=== PATIENT | female | born 1955 | race Caucasian/White ===

== ENCOUNTER 2024-11-11 14:27 | Outpatient (CLI) | payer MEDICARE, SELFPAY ==
--- NOTE | ~2024-11-11 | MM_ITS ---
EXAMINATION: MM screening willie BI w dimple HISTORY: Screening TECHNIQUE: Craniocaudal and mediolateral oblique 3-D tomosynthesis images were obtained and synthetic 2-D images were generated. CAD analysis was submitted and interpreted. COMPARISON: None available BREAST PARENCHYMAL COMPOSITION: There are scattered areas of fibroglandular density. FINDINGS: There is no evidence of suspicious mass, calcification, or architectural distortion to sugg est malignancy in either breast. IMPRESSION: 1. No mammographic evidence of malignancy. 2. Recommend routine screening mammography in one year. BI-RADS Category 1: Negative Reviewed, dictated and finalized at location B.
--- OUTSIDE RECORDS SUMMARY | 2024-11-11 14:40 | XMS_ITS | Clinical Summary ---
Author Organization [facility] Address [facility] [place] [address] Care Team Providers Care Account Specialist Name Role Phone Sarbjit Cameron MD Primary Care Provide r Allergies Active Allergy Reactions Criticality Noted Date Comments Penicillins Rash Medium 08/20/2018 Medications fluticasone (FLONASE) 50 mcg/actuation nasal spray 8 Active hydroCHLOROthia zide (HYDRODIURIL) 25 mg tablet 8 Active atorvastatin (LIPITOR) 10 mg tablet 8 Active montelukast (SINGULAIR) 10 mg tablet montelukast 10 mg tablet Active PREMARIN vaginal cream 8 Active diphenhydrAMINE (BENADRYL) 25 mg capsule Take 0.5 tablet/capsule (12.5 mg total) by mouth every 6 (six) hours as needed for itching Active metFORMIN (GLUCOPHAGE) 500 mg tablet metformin 500 mg tablet Active multivitamin,tx -minerals capsule Take by mouth Active cholecalciferol (VITAMIN D-3) 2000 unit tablet Active vitamin E (AQUASOL E) 400 unit capsule Take 1 capsule (400 Units total) by mouth Active lisinopriL (PRINIVIL,ZESTR IL) 10 mg tablet lisinopril 10 mg tablet TAKE 1 TABLET BY MOUTH DAILY 2 Active flu vac qs 16-17,4yr up,candy/PF (FLUCELVAX QUAD 4637-7826, PF, IM) Flucelvax Quad [id number] (PF) 60 mcg (15 mcg x 4)/0.5 mL IM syringe TO BE ADMINISTERED BY PHARMACIST FOR IMMUNIZATION Active Active Problems Problem Noted Date Diagnosed Date Vitamin D deficiency 11/10/2021 Allergy to environmental factors 10/19/2021 Cystocele with incomplete uterovaginal prolapse 10/13/2021 Assessment & Plan (05/28/2022 9:25 AM FOOD SERVICES DIRECTOR): -currently managed with #3 Ring, patient is happy with this support and desires to continue with conservative management for now -continue self management of pessary, she leaves out nightly -continue twice weekly VET -return in 6 months for pessary check, if doing well at that time can be seen annually. Assessment & Plan (03/08/2022 9:26 AM CDT): -currently managed with #3 Ring, patient is happy with this support and desires to continue with conservative management for now Assessment & Plan (10/13/2021 2:02 PM CDT): Management options were discussed for anterior predominant incomplete uterovaginal prolapse including expectant management, conservative management (a pessary), and surgical management (obliterative vs reconstructive). She desires to have conservative management. She is not sexually active. - she would like to start with PFPT, we discussed that PFPT will not reverse prolapse but may help in preventing progression and with symptoms - she will consider use of pessary and contact office for appointment if desires Pelvic floor dysfunction in female 10/13/2021 Assessment & Plan (03/08/2022 9:25 AM CDT): -completed PFPT -patient advised to resume home PFPT exercises Assessment & Plan (10/13/2021 1:59 PM CDT): We discussed the role that her pelvic floor muscle dysfunction is likely playing in her pelvic floor symptoms and bowel symptoms. Management options for levator ani/obturator pain/spasm were discussed including pelvic floor physical therapy. A prescription for PFPT was given. Hyperglycemia 10/12/2021 Essential hypertension 10/12/2021 Hyperlipidemia 10/12/2021 Urinary tract infectious disease 10/12/2021 High thyroid stimulating hormone (TSH) level 10/2021 Prediabetes 12/20/2020 Type 2 diabetes mellitus without complication Fatigue 10/29/2018 Thyroid nodule 08/20/2018 Syncope 02/27/2018 Vaginal atrophy 09/26/2016 Assessment & Plan (03/08/2022 9:26 AM CDT): - on twice weekly VET prescribed by outside physician, she was advised to continue Assessment & Plan (10/13/2021 2:03 PM CDT): - on twice weekly VET prescribed by outside physician, she was advised to continue Resolved Problems Problem Noted Date Diagnosed Date Resolved Date Cystocele, midline 10/13/2021 Excess or deficiency of vitamin D 07/06/2016 02/08/2022 Surgical History Surgery Date Site/Laterality Comments CHOLECYSTECTOMY 06/10/1979 - 06/09/1980 TUBAL LIGATION 06/10/1989 - 06/09/1990 Medical History Medical History Date Comments Hypertension Hypercholesteremia High cholesterol Pre-diabetes Cystocele Urinary tract infection Menopause ovarian failure Diabetes mellitus (HCC) 12/16/2020 Family History Medical History Relation Name Comments Diabetes Father Harvey Vyas Heart disease Father Harvey Vyas Hypertension Father Harvey Vyas Kidney failure Father Harvey Vyas Osteoarthritis Father Harvey Vyas Stroke Father Harvey Vyas Hearing loss Mother Jessica Roth Heart disease Mother Jessica Roth Osteoarthritis Mother Jessica Roth Osteoporosis Mother Jessica Waller Thyroid cancer Sister Relation Name Status Comments Father Harvey Vyas Mother Jessica Roth Alive Sister Alive Social History Tobacco Use Types Packs/Day Years Used Date Smoking Tobacco: Never Smokeless Tobacco: Never AUDIT-C Answer Date Recorded Frequency of Alcohol Consumption Not on file 08/23/2020 Average Number of Drinks Not on file 021 Q3: How often do you have si x or more drinks on one occasion? Never 08/23/2020 Comments No Sex and Gender Information Value Date Recorded Sex Assigned at Not on file Legal Sex Female 3:09 AM FOOD SERVICES DIRECTOR Gender Identity Female 10/10/2021 4:45 PM CDT Sexual Orientation Straight 09/25/2022 7: 32 PM CDT Occupation Industry Job Start Date Job End Date retired 08/08/2021 Not on file Not on file Not on file Obstetrics History Para Term AB IAB SAB Ectopic Multiple Livin g Live Births 2 2 2 2 2 Date Outcome GA Total Labor Labor/2nd/3rd Weight Sex Type Anes PTL Micheline A1 A5 Name Clin Term Vag-S pont Living Term Vag-S pont Living Last Filed Vital Signs Vital Sign Reading Time Taken Comments Blood Pressure 155/83 05/11/2024 7:57 AM FOOD SERVICES DIRECTOR Pulse - - Temperature - - Respiratory Rate - - Oxygen Saturation - - Inhaled Oxygen Concentration - - Weight 58.1 kg (128 lb) 05/11/2024 7:57 AM FOOD SERVICES DIRECTOR Height 152.4 cm (5') 05/11/2024 7:57 AM FOOD SERVICES DIRECTOR Body Mass Index 25 05/11/2024 7:57 AM FOOD SERVICES DIRECTOR Plan of Treatment Health Maintenance Due Date Last Done Comments Albumin Creatinine Ratio, Urine 1955 Breast Cancer Screening-Mammogram 1955 Colon Cancer Screening-Colonoscopy 1955 Depression Screening 1955 Fall Risk Assessment 1955 Hemoglobin A1C 1955 Hepatitis C Screening 1955 eGFR 1955 Dilated Eye Exam 1955 Foot Exam 1955 Lipid Panel 1955 Hepatitis B Screening 1973 Well Visit 65+ 2020 Osteoporosis Screening-Bone Density Scan 08/29/2024 08/29/2022 Influenza Vaccine (Season Ended) 2025 02/08/2021, 02/25/2020, 03/16/2019, Additional history exists DTaP/Tdap/Td Vaccine (2 - Td or Tdap) 10/24/2032 10/24/2022 Zoster Vaccine Completed 03/07/2018, 12/12/2017 Pneumococcal vaccine 65+ Completed 10/08/2023, 06/11 Insurance [facility] MEDICARE ADVANTAGE [facility] MED[facility] Address: [address] [address] [place] [address] [facility] MDCR HMO REF [facility] MEDICARE Address: [address] [address] [place] [address] Care Teams Account Specialist Relationship Specialty Start Date End Date Sarbjit Cameron MD [address] [address] PCP - General Internal Medicine 07/29/18
--- OUTSIDE RECORDS SUMMARY | 2024-11-11 14:40 | XMS_ITS | Referral Summary ---
Author Organization [facility] Address [facility] [place] [address] Care Team Providers Care Stoker Installer Name Role Phone Sarbjit Cameron MD Primary [...] flu vac qs 16-17,4yr up,candy/PF (FLUCELVAX QUAD [id number], PF, IM) Flucelvax Quad [id number] (PF) 60 mcg (15 mcg x 4)/0.5 mL IM syringe TO BE ADMINISTERED BY PHARMACIST FOR IMMUNIZATION Active Active Problems Problem Noted Date Diagnosed Date Vitamin D deficiency 11/10/2021 Allergy to environmental factors 10/19/2021 Cystocele with incomplete uterovaginal prolapse 10/13/2021 Assessment & Plan (05/28/2022 9:25 AM LEADITE HEATER): -currently managed with #3 Ring, patient is [...] or deficiency of vitamin D 07/06/2016 02/08/2022 Social History Tobacco Use Types Packs/Day Years [...] on file Legal Sex Female 3:09 AM LEADITE HEATER Gender Identity Female 10/10/2021 4:45 PM CDT Sexual Orientation Straight 09/25/2022 7: 32 PM CDT Occupation Industry Job Start Date Job End Date retired 08/08/2021 Not on file Not on file Not on file Last Filed Vital Signs Vital Sign Reading Time Taken Comments Blood Pressure 155/83 05/11/2024 7:57 AM LEADITE HEATER Pulse - - Temperature - - Respiratory Rate - - Oxygen Saturation - - Inhaled Oxygen Concentration - - Weight 58.1 kg (128 lb) 05/11/2024 7:57 AM LEADITE HEATER Height 152.4 cm (5') 05/11/2024 7:57 AM LEADITE HEATER Body Mass Index 25 05/11/2024 7:57 AM LEADITE HEATER Plan of Treatment Not on file Insurance [phone] (Home) [address] [place] [address] MEDICARE ADVANTAGE MDCR HMO REF Care Teams Stoker Installer Relationship Specialty Start Date End Date Sarbjit Cameron MD [address] [address] PCP - General Internal Medicine 07/29/18
--- OUTSIDE RECORDS SUMMARY | 2024-11-11 14:41 | XMS_ITS | Data Portability ---
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 inside the introitus in May that she is able to push back up where she thinks it belongs. She was helping lift a deep freezer in April up some stairs that she thinks may be the cause. Pt says if she bears down she is able to push the bulge out and says certain kegel exercises pulls it back up. Pt denies any urinary symptoms, changes in bowel movements, or abdominal/pelvic pain. LAURITA ACOSTA Attn: Accounting,[address] [facility], [place], [address], [facility] [place]07[place]21 11:33:08 04/27/2022 text/html Pt is a 66y/o female with a pmhx of postmenopausal atrophic vaginitis and grade 2 cystocele presents for follow up and medication refill. She is doing very well. She saw Uro/train planner for evaluation of cystocele. She completed 1 month of pelvic floor PT and was fitted for pessary. She is tolerating this well and not having any symptoms. She is using premarin cream with relief from atrophic vaginitis. She requests a refill. Pt denies pelvic pain, abnormal discharge, vaginal symptoms, n/v/f. LAURITA ACOSTA Attn: Accounting[address] [place], [address], [facility] [place]/09/[place]22 15:17:29 OBGyn Episode Ob Episode Information Episode Created Date Number of Fetuses Patient Bloodtype Patient rh Status Prepregnancy Weight lbs Domestic Partner Domestic Partner Phone Father Name Water Regulator And Valve Repairer Status 09/27/19 17 1 CLOSED Fetus Data First Name Last Name Admitted to NICU Weight (g) Sex Living Outcome Pediatric Complications Fetus ID Race Codes Race Delivery Type 3175.14 4 F Full Term [id number] Vaginal Leonidas Calculation Initial Leonidas Date Initial Exam Date Initial Exam Provider Initial Ultrasound Date Last Menstrual Period Date Ultra Sound Weeks Gestation 0 Eighteen To Twenty Week Leonidas Update Ultra Sound Date Fundal Height At Umbil Quickening Date Ultra Sound Latest Weeks Gestation Final Leonidas Confirmed By Final Leonidas Confirmed Date Final Leonidas Date Ultra Sound Latest Days Gestation 0 0 Menstrual History Last Menstrual Date Menses Monthly On Bcp Conception Prior Menses Frequency Hcg Plus Date Menarche Onset Age Delivery Information Delivery Date Delivery Type Labor Anesthesia Weeks Gestation Incision Type Labor Labor Length Hrs Delivered By Post Complications Tubal Sterilization Discharge Date Comments 0 None 40 false Discharge Information Feeding Method Contraceptive Method Maternal HG B and HCT Levels Ob Episode Information Episode Created Date Number of Fetuses Patient Bloodtype Patient rh Status Prepregnancy Weight lbs Domestic Partner Domestic Partner Phone Father Name Water Regulator And Valve Repairer Status 09/27/19 17 1 CLOSED Fetus Data First Name Last Name Admitted to NICU Weight (g) Sex Living Outcome Pediatric Complications Fetus ID Race Codes Race Delivery Type 3798.83 3 F Full Term [id number] Vaginal Leonidas Calculation Initial Leonidas Date Initial Exam Date Initial Exam Provider Initial Ultrasound Date Last Menstrual Period Date Ultra Sound Weeks Gestation 0 Eighteen To Twenty Week Leonidas Update Ultra Sound Date Fundal Height At Umbil Quickening Date Ultra Sound Latest Weeks Gestation Final Leonidas Confirmed By Final Leonidas Confirmed Date Final Leonidas Date Ultra Sound Latest Days Gestation 0 0 Menstrual History Last Menstrual Date Menses Monthly On Bcp Conception Prior Menses Frequency Hcg Plus Date Menarche Onset Age Delivery Information Delivery Date Delivery Type Labor Anesthesia Weeks Gestation Incision Type Labor Labor Length Hrs Delivered By Post Complications Tubal Sterilization Discharge Date Comments 2 None 40 false Discharge Information Feeding Method Contraceptive Method Maternal HG B and HCT Levels
--- OUTSIDE RECORDS SUMMARY | 2024-11-11 14:41 | XMS_ITS | Data Portability ---
Author Organization [place] [employer], Main Office Address [address] [place] [address] Care Team Providers Care Training Intern Name Role Phone GERARDO CAMERON Primary Care Provider GERARDO CAMERON Referring Provider [phone] Assessment Encounter Date Assessment Date Assessment LastModified by Organization Details LastModified Time 03/26/2023 03/26/2023 09/08/2022: TSH/FT4/CBC/L ipds/A1C: WNL CMP: Na 133 03/13/2023: Stable Na 131 Not available 03/26/2023 10:16:48 10/08/2023 10/08/2023 09/08/2022: TSH/FT4/CBC/L ipds/A1C: WNL CMP: Na 133 03/13/2023: Stable Na 131 09/27/2023: A1C 5.7 Not available 10/08/2023 10:23:03 02/18/2024 02/18/2024 09/08/2022: TSH/FT4/CBC/L ipds/A1C: WNL CMP: Na 133 03/13/2023: Stable Na 131 09/27/2023: A1C 5.7 02/05/2024: A1C 5.7 Not available 02/16/2024 18:16:02 07/06/2024 07/06/2024 09/08/2022: TSH/FT4/CBC/L ipds/A1C: WNL CMP: Na 133 03/13/2023: Stable Na 131 09/27/2023: A1C 5.7 02/05/2024: A1C 5.7 06/22/2024: A1C 5.4 Not available 07/06/2024 15:19:00 Plan of Treatment Reminders Order Date Submit Date Provider Last Modified By Organization Details Last Modified Time Details Appointments Any 15 2024 08:45A M Gerardo frost MD Not available Not available Not available Lab lipid panel, serum 2024 025 VERNDALE Иван, [address], [place], [address], 07/06/2024 15:19:53 CMP, serum or plasma 2024 025 VERNDALE Sean, [address], [address], [place], [address], 07/06/2024 15:19:54 CBC w/ auto diff 2024 025 VERNDALE Sean, [address], [place], [address], 07/06/2024 15:19:54 TSH + free T4, serum 2024 025 TRACYAPOORVA Estrada, [address], [place], [address], 07/06/2024 15:19:54 HbA1c (hemoglob in A1c), blood 2024 025 TRACYAPOORVA Estrada, [address], [place], [address], 07/06/2024 15:19:55 microalbu min, urine 2024 025 TRACY Estrada, [address], [place], [address], 07/06/2024 15:19:55 lipid panel, serum 2023 024 [email or web address] Иван, [address], [place], [address], 08/18/2024 10:07:56 CMP, serum or plasma 2023 024 [email or web address] [facility], [address], [place], [address], 08/18/2024 10:07:56 CBC w/ auto diff 2023 024 [facility], [address], [place], [address], 08/18/2024 10:07:56 TSH + free T4, serum 2023 024 [email or web address] [facility], [address], [place], [address], 08/18/2024 10:07:57 HbA1c (hemoglob in A1c), blood 2023 024 [email or web address] [facility], [address], [place], [address], 08/18/2024 10:07:57 microalbu min, urine 2023 024 [email or web address] [facility], [address], [place], [address], 08/18/2024 10:07:57 lipid panel, serum 2023 024 [email or web address] [facility], [address], [place], [address], 04/06/2024 12:43:07 CMP, serum or plasma 2023 024 [email or web address] [facility], [address], [place], [address], 04/06/2024 12:43:08 CBC w/ auto diff 2023 024 [email or web address] [facility], [address], [place], [address], 04/06/2024 12:43:08 TSH + free T4, serum 2023 024 [email or web address] [facility], [address], [place], [address], 04/06/2024 12:43:08 HbA1c (hemoglob in A1c), blood 2023 024 [email or web address] [facility], [address], [place], [address], 04/06/2024 12:43:08 microalbu min, urine 2023 024 [email or web address] [facility], [address], [place], [address], 04/06/2024 12:43:08 HbA1c (hemoglob in A1c), blood 2022 023 [email or web address] [facility], [address], [place], [address], 03/23/2024 08:43:22 microalbu min, urine 2022 023 [email or web address] [facility], [address], [address], [place], [address], 03/23/2024 08:43:22 lipid panel, serum 2022 023 TRACY [facility], [address], [place], [address], 10/08/2023 16:38:49 CMP, serum or plasma 2022 023 [email or web address] [facility], [address], [place], [address], 03/23/2024 08:43:22 CBC w/ auto diff 2022 023 [facility], [address], [place], [address], 03/23/2024 08:43:22 TSH + free T4, serum 2022 023 [email or web address] [facility], [address], [place], [address], 03/23/2024 08:43:22 Referral otolaryng ologist referral - Please call patient to schedule an appointme nt. Thank you. 2024 025 ATHENAFAX Shaka Lambert MD, [address], [place], [address], 08/20/2024 10:01:10 gynecolog ist referral - Please call patient to schedule an appointme nt. Thank you. 2024 025 sergio Jarquin MD, [address] [facility] [address], [address], [place], [address], 11/09/2024 15:57:58 podiatris t referral - Please call patient to schedule an appointme nt. Thank you. 2024 025 sergio ROYALM, [address] [facility], [address], [place], [address], 11/09/2024 15:57:58 urogyneco logist referral - Please call patient to schedule an appointme nt. Thank you. 2024 025 sergio Pollock DIRT CONTRACTOR, [address], [address], [place], [address], 11/09/2024 15:57:59 otolaryng ologist referral 2023 024 [email or web address] Shaka Lambert MD, [address], [place], [address], 02/18/2024 16:39:12 gynecolog ist referral 2023 024 [email or web address] Jean Jarquin MD, [address], [address], [place], [address], 02/18/2024 16:39:13 podiatris t referral 2023 024 [email or web address] Cyril Wallace DPM, [address], [address], [place], [address], 02/18/2024 16:39:12 urogyneco logist referral - Please call patient to schedule. 2023 024 [email or web address] Caren Pollock DIRT CONTRACTOR, [address], [address], [place], [address], 09/15/2024 08:22:04 otolaryng ologist referral 2023 024 [email or web address] Shane Gomez MD, [address] [place], [address], 07/06/2024 09:55:30 gynecolog ist referral 2023 024 Jean Jarquin MD, [address], [address], [place], [address], 04/06/2024 14:06:42 podiatris t referral 2023 024 [email or web address] Cyril Wallace DPM, [address], [address], [place], [address], 04/06/2024 14:06:41 otolaryng ologist referral 2022 023 [email or web address] Gomez MD, [address] [place], [address], 06/27/2023 17:08:56 gynecolog ist referral 2022 023 Jean Jarquin MD, [address], [address], [place], [address], 12/25/2023 08:17:57 podiatris t referral 2022 023 Cyril ROYALM, [address] [facility], [address], [place], [address], 03/23/2024 08:43:32 Procedures None recorded. Surgeries None recorded. Imaging MAMMO, screening , digital, bilateral - Please call patient to schedule. [address], [address] [place] [address], [address], 07/06/2024 16:38:15 MAMMO, screening , digital, bilateral - Please call patient to schedule. [address], [facility] [address], [place], [address], 03/19/2024 17:54:39 MAMMO, screening , digital, bilateral 2022 023 [facility]), [address] [place], [address], 04/26/2023 12:22:55 Medication Orders meloxicam 7.5 mg tablet 2023 024 [email or web address] [id number], [address] [place], [place], [id number], 02/18/2024 09:41:49 Patient TargetsNo targets recorded. Patient Instructions Encounter Date Encounter Id Patient Instructions Last Modified By Organization Details Last Modified Time 03/26/2023 [id number] diabetic eye exam* Not avail able 09/23/2023 08:59:29 10/08/2023 [id number] dementia rating scale-2* [email or web address] Not available 10/08/2023 18:28:26 alcohol misuse* hu 2 Not available 10/08/2023 18:28:26 depression screening* hu 2 Not available 10/08/2023 18:28:26 multi-dimensiona l health assessment questionnaire* hu 2 Not available 10/08/2023 18:28:26 advance directiv es: care instructions hu 2 Not available 10/08/2023 18:28:27 advance care planning: care instructions hu 2 Not available 10/08/2023 18:28:26 [place] Advance Directives hu 2 Not available 10/08/2023 18:28:26 diabetic eye exam* Not availa ble 04/06/2024 12:42:45 Personalized Hea lt Plan and Screening Recommendations Advance Directives - Do you have one? No You have indicated that you are capable of preparing your advance care directive Advance Directives - Do we have your advance directive on file in your health record? No, please bring in a copy at your earliest convenience Primary Prevention/Interven tion (prevents or decreases the chance of common diseases from occurring) Smoking Risk: Non Smoker Refer to attached smoking cessation handouts Refer to attached handouts and prescription will be sent to pharmacy Continue to consider stopping smoking and call if we can assist you Recommend screening for possible Emphysema with pulmonary function testing Recommend lung cancer screening with low dose CT scan of the chest Non Smoker Alcohol Misuse Screening: Negative Refer to attached alcohol cessation handout Refer to attached handout and prescription will be sent to pharmacy Decrease alcohol intake to 1 or less servings per day Continue to consider stopping alcohol and call if we can assist you Recommend referral for alcohol counseling/rehabili tation Does not drink alcahol Weight: Appropriate continue your current weight loss efforts try to lose 5% of your body weight try to lose 10% of your body weight try to lose 15% of your body weight consultation with a dietitian monitor weight weekly and call if continue to lose weight continue your current diet Physical activity: Appropriate physical activity decrease sitting time to no more than 5hr/day Nutrition: Good Refer to attached handout Heart-Healthy Diet: After Your Visit Fall Risk (screened today): Low Refer to attached handout Preventing Falls: After your Visit Vaccines Pneumococcal: Ordered Recommended today Recommended today, but you have declined No further needed Your next one in: Ordered/ given today in office Influenza: Your next one in the fall of this year Chronic Disease Risks Stroke: Intermediate Risk I have no recommendations Act simeon diagnosis, Continue current treatment plan My recommendation would be to make an appointment for further testing Eat heart healthy diet Heart Attack: Intermediate Risk I have no recommendations Act simeon diagnosis, Continue current treatment plan My recommendation would be to make an appointment for further testing Eat heart healthy diet / increase exercise Clogging of the Arteries: Intermediate Risk I have no recommendations Act simeon diagnosis, Continue current treatment plan My recommendation would be to make an appointment for further testing Eat heart healthy diet Diabetes: High Risk Refer to attached handout Pre-diabetes: After Your Visit Secondary Prevention/Interven tion (detects treatable diseases before they may cause symptoms, disability, or ) Breast Cancer Screening with mammogram: Recommended today Cervical/Uterine/Ov jerry Cancer Screening: Recommended today Osteoporosis Screening: Your next DEXA in: Ordered Recomme nded today Recommended today, but you have declined No screening necessary Your next DEXA in:1 year Date Screening Last Performed: Colon Cancer Screening: Colonoscopy In: Ordered Recomme nded Recommended today, but you have declined No screening necessary In: Due 08/09/2027 Date Screening Last Performed: 03/31/2022 Eye Disease Screening: Recommended today Dementia Risk: Low I have no recommendations Depression Screening: Negative Recommend additional evaluation and/or treatment as noted above Recommend follow appointment to further evaluate Recommend Behavioral Health referral Active diagnosis, Continue current treatment plan I have no recommendations Not available 10/08/2023 15:37:25 02/18/2024 [id number] diabetic eye exam* [email or web address] Not avail able 08/17/2024 17:41:50 07/06/2024 [id number] diabetic eye exam* [email or web address] Not avail able 07/06/2024 15:38:53 Reason for Referral Bevel Face Stoner And Polisher Referral fo r Thyroid nodule Referring Physician: Gerardo Cameron, Internal Medicine, Encounter Date: 03/26/2023 Accounting Manager Assistant Controller Referral for Type 2 diabetes mellitus without complication Referring Physician: Gerardo Cameron Internal Medicine, Encounter Date: 03/26/2023 Environmental Service Aide Referral for Gy necologic examination Referring Physician: Brad Ortez Medicine, Encounter Date: 03/26/2023 Bevel Face Stoner And Polisher Referral fo r Thyroid nodule Referring Physician: Brad Ortez, Encounter Date: 10/08/2023 Accounting Manager Assistant Controller Referral for Type 2 diabetes mellitus without complication Referring Physician: Brad Ortez, Encounter Date: 10/08/2023 Environmental Service Aide Referral for Gy necologic examination Referring Physician: Brad Ortez Medicine, Encounter Date: 10/08/2023 Bevel Face Stoner And Polisher Referral fo r Thyroid nodule Referring Physician: Brad Ortez, Encounter Date: 02/18/2024 Accounting Manager Assistant Controller Referral for Type 2 diabetes mellitus without complication Referring Physician: Brad Ortez, Encounter Date: 02/18/2024 Environmental Service Aide Referral for Gy necologic examination Referring Physician: Brad Ortez, Encounter Date: 02/18/2024 Urogynecologist Referral for Cystocele Please call patient to schedule. Referring Physician: Brad Ortez, Encounter Date: 02/18/2024 Bevel Face Stoner And Polisher Referral fo r Thyroid nodule Please call patient to schedule an appointment. Thank you. Referring Physician: Brad Ortez, Encounter Date: 07/06/2024 Accounting Manager Assistant Controller Referral for Type 2 diabetes mellitus without complication Please call patient to schedule an appointment. Thank you. Referring Physician: Brad Ortez, Encounter Date: 07/06/2024 Environmental Service Aide Referral for Gy necologic examination Please call patient to schedule an appointment. Thank you. Referring Physician: Brad Ortez, Encounter Date: 07/06/2024 Urogynecologist Referral for Cystocele Please call patient to schedule an appointment. Thank you. Referring Physician: Gerardo Cameron, Internal Medicine, Encounter Date: 07/06/2024 Results Created Date Observation Date Name Description Value Unit Range Abnormal Flag Note LastModifiedBy Organization Detail LastModifiedTime 04/26/20 23 04/26/2023 screcody romero breas t gamal, bilat [facility] [address] [place] [address] Patien t Name: PINKY BASSETT Access ion #: [id number] Sex: F : 1954 7 Dictat ed By: Sloane Gracia Attend ing Physic alma: VIV SOTO Orderi ng Physic alma: VIV SOTO Exam Date: 2022 07:07 AM Exam Name: MG HELMS BREAST GAMAL BILAT Admitt ing Diagno sis(es ): CLINIC AL HISTOR Y: Screen ing COMPAR AMELIA STUDY: 022 TECHNI QUE: Using a full field digita l 2D mammog natasha unit CC and MLO views of both breast s are perfor med. FINDIN GS: BREAST COMPOS ITION: There are scatte red areas of fibrog landul ar densit y in the bilate ral breast s. No suspic ious masses , johnathon ectura l distor tion, asymme tries or suspic ious calcif icatio ns in both breast s. IMPRES TATUM: No eviden ce of malign sissy. Recomm end annual mammog kinga. BIRADS : 2 - Benign Electr onical ly Signed by: Sloane Gracia at 2022 11:19: 43 AM Page 1 [email or web address] [facility] (Imaging) [address] [place], [address], 05/16/2023 14:59:26 04/26/20 23 04/26/2023 MAMMO , sia romero, digit al, bilat eral No observ ation record ed. [email or web address] [facility] [address] [facility], [place], [address], 05/16/2023 14:59:26 10/17/19 24 10/17/2023 imagi ng/di agnos tic resul t No observ ation record ed. [facility] [address] [facility], [place], [address], 10/17/2023 23:35:07 Result Notes None recorded. Problems Name Problem SNOMED Code Status Onset Date Resolution Date Notes Provider Name and Address Organization Details Recorded Time Gastroesop hageal reflux disease without esophagiti s 804506929 Active 2022 Gerardo perkins MD [address] [facility] [address], [place], [address] , [employer] 3 17:13:29 Thyroid nodule 814210300 Active 2022 Gerardo perkins MD [address], [address] [place] [address], [place], [address] , [employer] 3 17:14:10 Increased liver function 92979414 Active 2022 Gerardo perkins MD [address], [place] [address], [place], [address] , [employer] 3 17:14:42 Obstructiv e sleep apnea syndrome 50626433 Active 2022 Gerardo perkins MD [address] [facility] [address], [place], [address] , [employer] 3 17:14:46 Cystocele 590128684 Active 2022 Gerardo perkins MD [address] [facility] [address], [place], [address] , [employer] 3 17:15:02 Pain in finger of left hand 4764192038788 05 Active 2022 Gerardo perkins MD [address], [address], [place], [address] , [place] [facility] 3 17:15:11 Urinary incontinen ce 067958261 Active 2022 Gerardo perkins MD [address], [address], [place], [address] , [place] [facility] 3 17:16:30 Pain of left knee joint 1906123060290 07 Active 2023 Gerardo perkins MD [address], [address], [place], [address] , [facility] 4 14:29:50 Thyroid stimulatin g hormone level above reference range 390669090 Active 2021 Not Available [facility] 3 04:52:58 Type 2 diabetes mellitus without complicati on 994460568 Active 2019 Not Available [facility] 3 04:52:58 Vitamin D deficiency 69978060 Active 2021 Not Available [facility] 3 04:52:58 Disorder of vitamin D 236173731 Active 2016 Not Available [facility] 3 04:52:58 Environmen bea allergy 612472206 Active 2021 Not Available [facility] 3 04:52:58 Hyperlipid emia 54224567 Active Not Available [facility] 3 04:52:58 Essential hypertensi on 81054531 Active Not Available [employer] 3 04:52:58 Urinary tract infectious disease 23866639 Active Not Available [employer] 3 04:52:59 Prediabete s 198382910 Active 2020 Not Available [employer] 3 04:52:59 Diabetes mellitus 27932201 Active Not Available [employer] 3 04:52:59 Hyperglyce deandra 83444674 Active Not Available [employer] 3 04:52:59 Fatigue 02842746 Active 2018 Not Available [facility] 3 04:52:59 Problem Notes None recorded. Procedures Surgical History Date Name Laterality Status Provider Name and Address Organization Details Recorded Time 10/08/19 24 Medicare Wellness CPT Code, subsequent completed Eric Landers LPN [facility] [employer] [facility] 10/08/2023 13:42:13 10/08/19 24 Advanced Care Planning completed Eric Landers LPN [facility] [employer] [facility] 10/08/2023 15:33:23 Cholecystectomy completed JASSON Fernandez [facility] [employer] [facility] 03/26/2023 10:09:09 ligation of fallopian tube completed Maggy Watkins MA [facility] [employer] [facility] 10/08/2023 09:37:03 Imaging Results None recorded. Procedure Notes None recorded. Medical Equipment None Reported. Allergies Allergen ID Allergen Name Allergen Category Reaction Reaction Severity Criticality Documentation Date Start Date Code Code System Note Provider Name and Address Organization Details Recorded Time 8748 Product containin g penicilli n (product) medicatio n rash mild Not available 08/08/2022 97634 8001 SNOMED Not Available [facility] 3 05:06:31 Medications Name Sig Start Date Stop Date Status Note LastModified by Organization Details LastModified Time status covid-19/fl u a-b antigen tst TEST DIRECTED TODAY 02/17 completed Not Available Not Available Not Available metformin 500 mg tablet TAKE 1 TABLET BY MOUTH TWICE DAILY 2024 active Not Available Not Available Not Avai lable prednisone 10 mg tablet 30mg x 2 days, 20mg x 2 days, 10mg x 2 days active Not Available Not Available No t Available famotidine 10 mg tablet Take 1 tablet every day by oral route. 02/24 completed Not Available Not Available Not Available atorvastati n 10 mg tablet TAKE 1 TABLET BY MOUTH DAILY 2024 active Not Available Not Available Not Avai lable azithromyci n 250 mg tablet TAKE 2 TABLETS (500 MG) BY ORAL ROUTE ONCE DAILY FOR 1 DAY THEN 1 TABLET (250 MG) BY ORAL ROUTE ONCE DAILY FOR 4 DAYS 07/23 completed Not Available Not Available Not Available hydrocodone 5 mg-acetamin ophen 325 mg tablet active Not Available Not Available No t Available clindamycin HCl 150 mg capsule TAKE ONE CAPSULE BY MOUTH FOUR TIMES DAILY 07/06 completed Not Available Not Available Not Available sulfamethox azole 800 mg-trimetho prim 160 mg tablet TAKE 1 TABLET BY MOUTH TWICE DAILY 09/11 completed Not Available Not Available Not Available aspirin 81 mg tablet,jesica yed release Take one tablet every other day 03/05 completed Not Available Not Available Not Available meloxicam 7.5 mg tablet TAKE 1 TABLET BY MOUTH TWICE DAILY FOR 15 DAYS NEEDED 02/17 completed Not Available Not Available Not Available famotidine 20 mg tablet Take 1 tablet every day by oral route at bedtime. 2017 active Not Available Not Available Not Avai lable Kenalog 10 mg/mL suspension for injection In office injection administe red by the provider 09/11 completed [facility]: 0003- 0494- 20 Not Available Not Available Not Available lisinopril 10 mg tablet TAKE 1 TABLET BY MOUTH DAILY 2024 active Not Available Not Available Not Avai lable montelukast 10 mg tablet TAKE 1 TABLET BY MOUTH DAILY 2024 active Not Available Not Available Not Avai lable quinapril 20 mg tablet TAKE 1 TABLET BY MOUTH DAILY 05/29 completed Not Available Not Available Not Available hydrochloro thiazide 25 mg tablet TAKE 1 TABLET BY MOUTH DAILY 2024 active Not Available Not Available Not Avai lable ergocalcife rol (vitamin D2) 1,250 mcg (50,000 unit) capsule 10/30 completed Not Available Not Available Not Available levofloxaci n 500 mg tablet active Not Available Not Available Not Available fluticasone propionate 50 mcg/actuati on nasal spray,suspe nsion USE 2 SPRAYS IN BOTH NOSTRILS DAILY 2024 active Not Available Not Available Not Avai lable Benadryl 25 mg capsule Take 1 capsule every day by oral route as needed. active Not Available Not Available No t Available Premarin 0.625 mg/gram vaginal cream INSERT 1 GRAM VAGINALLY TWICE WEEKLY active Not Available Not Available No t Available Multivitami n 50 Plus tablet Take 1 tablet every day by oral route. 2017 active Not Available Not Available Not Avai lable vitamin E TK 1T PO QD 2020 active Not Available Not Available Not Avai lable Vitamin D TK 1T PO QD 2020 active Not Available Not Available Not Avai lable Vitamin D3 qd 03/02 completed Not Available Not Available Not Available lidocaine (PF) 10 mg/mL (1 %) injection solution In office injection administe red by the provider 09/11 completed [facility]: 0409- 4276- 17 Not Available Not Available Not Available Suprep Bowel Prep Kit 17.5 gram-3.13 gram-1.6 gram oral solution 02/24 completed Not Available Not Available Not Available Fluvirin 3508-2713 45 mcg (15 mcg x 3)/0.5 mL intramuscul ar suspension ADM 0.5ML UTD active Not Available Not Available No t Available Fluarix Quad 8640-5712 (PF) 60 mcg (15 mcg x 4)/0.5 mL IM syringe TO BE ADMINISTE RED BY PHARMACIS T FOR IMMUNIZAT ION active Not Available Not Available No t Available Flucelvax Quad 2599-7572 (PF) 60 mcg (15 mcg x 4)/0.5 mL IM syringe TO BE ADMINISTE RED BY PHARMACIS T FOR IMMUNIZAT ION active Not Available Not Available No t Available Flucelvax Quad 3806-4075 (PF) 60 mcg (15 mcg x 4)/0.5 mL IM syringe active Not Available Not Available N ot Available Shingrix (PF) 50 mcg/0.5 mL intramuscul ar suspension, kit ADM 0.5ML IM UTD 06/30 completed Not Available Not Available Not Available Afluria Quad 7999-5601 (PF) 60 mcg (15 mcg x 4)/0.5 mL IM syringe ADM 0.5ML IM UTD 06/30 completed Not Available Not Available Not Available Afluria Qd (36 mos up)(PF)60 mcg (15 mcg x4)/0.5 mL IM syringe ADM 0.5ML IM UTD 03/02 completed Not Available Not Available Not Available Vitals Date Recorded Body height Body mass index (BMI) Body weight Body temperature Heart rate Systolic blood pressure Diastolic blood pressure Provider Name and Address Organization Details Last Updated DateTime 5 152.4 cm 25.2 kg/m2 11279.4 2 g 97.7 [degF] 84 /min 132 mm[Hg] 76 mm[Hg] Rosa Martin Patrice [employer] [facility] [employer] [facility] 5 15:17:26 Date Recorded Body height Body mass index (BMI) Body weight Body temperature Heart rate Oxygen saturation Oxygen saturation in Arterial blood by Pulse oximetry Systolic blood pressure Diastolic blood pressure Provider Name and Address Organization Details Last Updated DateTime 4 152.4 cm 25.1 kg/m2 50259.6 2 g 97.7 [degF] 92 /min 99 % 99 % 128 mm[Hg] 66 mm[Hg] Maggy Watkins MA [employer] [facility] [employer] [facility] 4 09:35:22 Date Recorded Body height Body mass index (BMI) Body weight Body temperature Heart rate Systolic blood pressure Diastolic blood pressure Provider Name and Address Organization Details Last Updated DateTime 4 152.4 cm 26.4 kg/m2 47087.9 7 g 97.7 [degF] 78 /min 130 mm[Hg] 72 mm[Hg] Rosa Martin [facility] [employer] [facility] [employer] 4 14:09:06 Date Recorded Body height Body mass index (BMI) Body weight Body temperature Heart rate Respiratory rate Oxygen saturation Oxygen saturation in Arterial blood by Pulse oximetry Systolic blood pressure Diastolic blood pressure Provider Name and Address Organization Details Last Updated DateTime 4 152.4 cm 25 kg/m2 50415.8 2 g 97.7 [degF] 90 /min 18 /min 98 % 98 % 128 mm[Hg] 80 mm[Hg] Eric Landers LPN [place] [employer] [facility] [employer] [facility] 4 09:40:23 Date Recorded Body height Body mass index (BMI) Body weight Body temperature Heart rate Systolic blood pressure Diastolic blood pressure Provider Name and Address Organization Details Last Updated DateTime 3 152.4 cm 24.1 kg/m2 80660.6 6 g 97.6 [degF] 78 /min 116 mm[Hg] 60 mm[Hg] Rosa Martin Patrice [place] [employer] [facility] [employer] [facility] 3 10:10:47 Social History Question Answer Notes LastModified by Organization Details LastModified Time Tobacco Smoking Status Never Smoker Torri Alireza, NA null, [place] - [facility] 09/11/2022 10:55:10 Do You Have An Advance Directive? No Information Given Today [email or web address] Information not available 10/08/2023 Are You Blind Or Do You Have Difficulty Seeing? No [email or web address] Information not available 10/08/2023 What Is Your Level Of Caffeine Consumption? Moderate [id number] Information not available 08/08/2022 In The 14 Days Before Symptom Onset, Have You Had Close Contact With A Laboratory-conf irmed COVID-19 While That Case Was Ill? No [email or web address] Information not available 09/11/2022 In The 14 Days Before Symptom Onset, Have You Had Close Contact With A Person Who Is Under Investigation For COVID-19 While That Person Was Ill? No [email or web address] Information not available 09/11/2022 Are You Deaf Or Do You Have Serious Difficulty Hearing? No Information not available 09/11/2022 What Type Of Diet Are You Following? REGULAR [email or web address] Information not available 10/08/2023 What Is The Highest Grade Or Level Of School You Have Completed Or The Highest Degree You Have Received? [id number] Information not available 10/08/2023 How Many Days Of Moderate To Strenuous Exercise, Like A Brisk Walk, Did You Do In The Last 7 Days? 4 [email or web address] Information not available 10/08/2023 On Those Days That You Engage In Moderate To Strenuous Exercise, How Many Minutes, On Average, Do You Exercise? 30 Information not available 10/08/2023 Have There Been Any Changes To Your Family Or Social Situation? No Information not available 09/11/2022 What Is The Fluoride Status Of Your Home? Unknown [email or web address] Information not available 09/11/2022 Are There Any Guns Present In Your Home? No [email or web address] Information not available 09/11/2022 Do You Use Insect Repellent Routinely? No [email or web address] Information not available 09/11/2022 Where Do You Live? [facility] [email or web address] Information not available 09/11/2022 Presence Of Domestic Violence No [email or web address] Information not available 10/08/2023 Guns Present In The Home? No Information not available 10/08/2023 Are You Able To Care For Yourself? Yes [email or web address] Information not available 10/08/2023 Are You Blind Or Do Yo Have Difficulty Seeing? No [email or web address] Information not available 10/08/2023 Are You Deaf Or Do You Have Serious Difficulty Hearing? No [email or web address] Information not available 10/08/2023 General Stress Level? Low Information not available 10/08/2023 Live Alone Of With Others? With Others [email or web address] Information not available 10/08/2023 Do You Have A Medical Power Of Plant Worker? No Information not available 09/11/2022 What Was The Date Of Your Most Recent Tobacco Screening? 07/06/2024 Information not available 07/06/2024 Do You Have Any Pets? Yes Cat And Dog [email or web address] Information not available 10/08/2023 What Is Your Relationship Status? Information not available 09/11/2022 Do You Use Your Seat Belt Or Car Seat Routinely? Yes Information not available 09/11/2022 Do You Have Smoke And Carbon Monoxide Detectors In Your Home? Yes [email or web address] Information not available 09/11/2022 Are You Passively Exposed To Smoke? No [email or web address] Information not available 09/11/2022 Are There Any Smokers In Your House? No [email or web address] Information not available 09/11/2022 What Types Of Sporting Activities Do You Participate In? None [email or web address] Information not available 10/08/2023 Do You Use Sunscreen Routinely? Yes [email or web address] Information not available 09/11/2022 Has Tobacco Cessation Counseling Been Provided? No N/a Information not available 09/11/2022 Have You Recently Traveled Abroad? No [email or web address] Information not available 09/11/2022 Do You Have Difficulty Walking Or Climbing Stairs? No Information not available 09/11/2022 Do You Have Any Dietary Restrictions? No [email or web address] Information not available 09/11/2022 Sex: Female Functional Status Question Answer Note LastModified by Organizat ion Details LastModified Time Do you use any illicit or recreational drugs? No Information not available 09/11/2022 Do you or have you ever used any other forms of tobacco or nicotine? No [email or web address] Information not available 09/11/2022 What is your level of alcohol consumption? None [id number] Information not available 08/08/2022 Are you currently employed? No retired Information not available 09/11/2022 Do you have transportation difficulties? No Information not available 09/11/2022 Are you able to walk? [email or web address] Information not available 09/11/2022 Do you have difficulty doing errands alone? No Information not available 09/11/2022 Are you able to care for yourself? Yes Information n ot available 09/11/2022 Do you have difficulty dressing or bathing? No Information not available 09/11/2022 What is your exercise level? Moderate [id number] Information not available 08/08/2022 Mental Status Question Answer Note LastModified by Organizat ion Details LastModified Time Do you feel stressed (tense, restless, nervous, or anxious, or unable to sleep at night)? [id number] Information not available 10/08/2023 Do you have difficulty concentrating, remembering or making decisions? No [email or web address] Information no t available 10/08/2023 Family History Relationship Description Onset Age of this Age Resolved Age Notes LastModified by Organization Details LastModified Time Father Heart disease [id number] Not available 08/08/2022 04:42:51 Father Diabetes mellitus [id number] Not available 08/08/2022 04:42:51 Father Hypertensive disorder [id number] Not available 08/08/2022 04:42:51 Father Family history of stroke [email or web address] Not available 14:18:09 Sister Family history of malignant neoplasm [email or web address] Not available 14:18:09 Mother Kidney disease [id number] Not available 08/08/2022 04:42:51 Medical History Condition Response NERVE DISEASE N BLINDNESS N RHEUMATIC FEVER N KIDNEY STONES N BLADDER PROBLEMS N MRSA N OTHER # 1 N POLIO N LUNG DISEASE/DISORDER N HISTORY OF DRUG ABUSE N RADIATION / CHEMOTHERAPY N COPD N Other # 2 N BLOOD DISEASES N EAR OR HEARING PROBLEMS N MUMPS N SHINGLES N DEPRESSION (INCLUDING POST ) N BOWEL PROBLEMS N STROKE/TIA N ULCERS N BENIGN PROSTATIC HYPERPLASIA N MEASLES N HYPOTENSION N MYOCARDIAL INFARCTION N OBESITY N GERD/NAUSEA Y ANEURYSM N URINARY/BLADDER/KIDNEY PROBLEMS Y CORONARY ARTERY DISEASE (CAD) N ADDICTION CONCERNS N Impotence N ENDOMETRIOSIS N USE OF BLOOD THINNERS N SKIN PROBLEMS N GASTROINTESTINAL DISORDER N PERIPHERAL VASCULAR DISEASE N MUSCLE,JOINT OR BONE PROBLEMS N GASTROINTESTINAL BLEEDING N BLOOD CLOTS N ASTHMA N CATARACTS N ERECTILE DYSFUNCTION N VARICOSITIES N GI PROBLEMS N Low Testosterone N INFERTILITY N AIDS/HIV N CHEMOTHERAPY / RADIATION N LIVER DISEASE N MALE HYPOGONADISM N HYPERTENSION Y Deficiency N TOURETTE'S N ANXIETY DISORDER N BLOOD TRANSFUSION N ANEMIA/BLOOD DISORDER N CHRONIC EAR INFECTIONS N BRONCHITIS N TUBERCULOSIS N GLAUCOMA N FOOT PROBLEM N DIVERTICULITIS N SLEEP APNEA N CHICKENPOX N INFECTIOUS DISEASE N PROSTATE N HEART ARRHYTHMIA N INSOMNIA N HIGH CHOLESTEROL / HYPERLIPIDEMIA Y HYPERTHYROIDISM N EYE PROBLEMS N EDEMA N CHRONIC PAIN SYNDROME N HYPOTHYROIDISM N CONSTIPATION N CAROTID BLOCKAGE N BACK / NECK PROBLEMS N ATHEROSCLEROSIS N BREAST PROBLEMS N DIALYSIS N ECZEMA N OSTEOPOROSIS N ARTHRITIS N APPENDICITIS N DIABETES, TYPE Y BAD TEETH N ENT N HEARTBURN / REFLUX N AUTISM SPECTRUM DISORDER (ASD) N HEPATITIS / LIVER DISEASE N GOUT N SLEEP DISORDER N ALZHEIMER'S DISEASE N Brain Problems N HERPES N DEMENTIA N SEIZURES/EPILEPSY N HEADACHES/MIGRAINES N VASCULAR DISEASE N PACEMAKER N Blood Disorder N DIZZINESS N KIDNEY DISEASE N HEART DISEASE/HEART PROBLEMS N MULTIPLE SCLEROSIS N CARDIAC ARRHYTHMIA N CANCER: SPECIFY N Gall Stones Y ATRIAL FIBRILLATION N PULMONARY EMBOLISM N AUTOIMMUNE DISEASE N Gynecological History Statement/Question Response How many live births 2 Date of Last Colonoscopy Date of Last Mammogram Date of LMP Most Recent Bone Density Date of Last Pap Current Control Method Tubal Ligat ion Obstetrics History GPAL:G 2 P 2 0 0 2 Type Value Multiple Births 0 Full Term 2 Induced 0 Spontaneous 0 Premature 0 Living 2 Ectopics 0 Total 2 Immunizations Vaccine Type Date Status Note Provider Catarino ross and Address Organization Details Recorded Time Influenza, high-dose, quadrivalent, PF 2 completed JASSON Fernandez, [facility] [employer] [facility] 07/06/2024 15:14:33 Tdap 3 completed JASSON Fernandez, [facility] [employer] [facility] 07/06/2024 15:14:56 RSV, bivalent, protein subunit RSVpreF, diluent reconstituted, 0.5 mL, PF 3 completed Rosa Martin RMA null, [facility] 03/26/2023 10:07:04 Influenza, high-dose, quadrivalent, PF 3 completed Rosa Martin RMA null, [facility] 03/26/2023 10:07:42 COVID-19, mRNA, LNP-S, PF, 10 mcg/0.2 mL dose, jorge-sucrose 3 completed Rosa Martin RMA null, [facility] 03/26/2023 10:08:30 Influenza, MDCK, quadrivalent, PF 6 completed Rosa Martin RMA null, [facility] 07/06/2024 15:14:33 Influenza, MDCK, quadrivalent, PF 7 completed Rosa Martin RMA null, [facility] 07/06/2024 15:14:33 zoster recombinant 8 completed Rosa Martin RMA null, [facility] 07/06/2024 15:14:33 zoster recombinant 8 completed Rosa Martin RMA null, [facility] 07/06/2024 15:14:33 Influenza, high-dose, quadrivalent, PF 1 completed Rosa Martin RMA null, [facility] 07/06/2024 15:14:33 Influenza, adjuvanted, quadrivalent, PF 2 completed Rosa Martin RMA null, [facility] 07/06/2024 15:14:33 COVID-19, mRNA, LNP-S, PF, 30 mcg/0.3 mL dose 1 completed Rosa Martin RMA null, [facility] 07/06/2024 15:14:33 COVID-19, mRNA, LNP-S, PF, 30 mcg/0.3 mL dose 1 completed Rosa Martin RMA null, [facility] 07/06/2024 15:14:33 COVID-19, mRNA, LNP-S, PF, 30 mcg/0.3 mL dose 1 completed Rosa Martin RMA null, [facility] 07/06/2024 15:14:33 COVID-19, mRNA, LNP-S, PF, 30 mcg/0.3 mL dose, jorge-sucrose 2 completed Rosa Martin RMA null, [facility] 07/06/2024 15:14:33 COVID-19, mRNA, LNP-S, bivalent, PF, 30 mcg/0.3 mL dose 2 [facility] 15:14:33 Influenza, split virus, quadrivalent, PF 0 completed [facility] 15:14:33 Influenza, split virus, quadrivalent, PF 8 completed [facility] 15:14:33 Influenza, split virus, quadrivalent, PF 5 completed [facility] 15:14:33 Influenza, adjuvanted, quadrivalent, PF 3 completed Rosa Martin RMA null, [facility] 07/06/2024 15:14:56 COVID-19, mRNA, LNP-S, bivalent, PF, 30 mcg/0.3 mL dose 3 completed Rosa Martin RMA null, [facility] 07/06/2024 15:14:56 RSV, bivalent, protein subunit RSVpreF, diluent reconstituted, 0.5 mL, PF 3 completed Rosa Martin RMA null, [facility] 07/06/2024 15:14:56 COVID-19, mRNA, LNP-S, PF, jorge-sucrose, 30 mcg/0.3 mL 4 completed Rosa Martin RMA null, [facility] 07/06/2024 15:14:56 COVID-19, mRNA, LNP-S, PF, jorge-sucrose, 30 mcg/0.3 mL 3 completed Rosa Martin RMA null, [facility] 07/06/2024 15:14:56 Influenza, high-dose, trivalent, PF 4 completed Rosa Martin RMA null, [facility] 07/06/2024 15:14:56 SARS-COV-2 (COVID-19) vaccine, UNSPECIFIED 1 completed Not Available [facility] 08/08/2022 05:05:49 SARS-COV-2 (COVID-19) vaccine, UNSPECIFIED 1 completed Rosa Martin RMA null, [facility] 07/06/2024 15:14:33 SARS-COV-2 (COVID-19) vaccine, UNSPECIFIED 1 completed Rosa Martin RMA null, [facility] 07/06/2024 15:14:33 Influenza, split virus, quadrivalent, preservative 0 completed Rosa Martin RMA null, [facility] 07/06/2024 15:14:33 Influenza, split virus, quadrivalent, preservative 9 completed Not Available [facility] 08/08/2022 05:05:50 Influenza, split virus, trivalent, preservative 6 completed Rosa Martin RMA null, [facility] 07/06/2024 15:14:33 Influenza, split virus, trivalent, preservative 5 completed Rosa Martin RMA null, [facility] 07/06/2024 15:14:33 COVID-19, mRNA, LNP-S, PF, 30 mcg/0.3 mL dose 2 completed Rosa aMrtin RMA null, [employer] [facility] 07/06/2024 15:14:33 Influenza, high-dose, trivalent, PF 1 completed Not Available [facility] 08/08/2022 05:05:50 Influenza, split virus, quadrivalent, preservative 8 completed Not Available [facility] 08/08/2022 05:05:50 Influenza, split virus, trivalent, preservative 4 completed Rosa Martin RMA null, [employer] [facility] 07/06/2024 15:14:33 Pneumococcal conjugate PCV 13 1 completed Rosa Martin RMA null, [employer] [facility] 07/06/2024 15:14:33 Influenza, split virus, trivalent, PF 3 completed Rosa Martin RMA null, [employer] [facility] [employer] [facility] 07/06/2024 15:14:33 pneumococcal polysaccharide PPV23 4 completed Gerardo Cameron MD [address], [place], [address], [facility] [employer] [facility] 10/08/2023 18:27:12 Past Encounters Encounter ID Performer Location Encounter Start Date Encounter Closed Date Diagnosis/Indication Diagnosis SNOMED-CT Code Diagnosis ICD10 Code Diagnosis Note [id number] MD KRISHNA De Leon_[facility] [place] [address] [place] [address] 10/27/2020 00:00:00 10/27/2020 17:22:29 [id number] [facility] ic_[place] _ATHENA_M IGRATION_ DEFAULT_1 _1 , 12/16/2020 00:00:00 12/20/2020 21:10:07 [id number] Gerardo perkins MD Segun_[facility] Internal Med [place] [address] [place] [address] 04/27/2021 00:00:00 04/27/2021 17:55:06 [id number] Gerardo perkins MD S_[facility] Internal Med [facility] [address] [place] [address] 09/19/2021 00:00:00 12/07/2021 09:50:13 [id number] Hira Asencio MD S_[facility] Ortho Dianna Messer [address] [place] [address] 10/25/2021 00:00:00 10/25/2021 17:10:29 [id number] Gerardo perkins MD S_[facility] Internal Med [facility] [address] [facility] [address] [place] [address] 03/20/2022 00:00:00 03/20/2022 13:53:52 [id number] Gerardo perkins MD [facility] Internal Med [facility] [address] [facility] [address] [place] [address] 09/11/2022 10:53:18 09/11/2022 11:30:39 Screening - NAD [id number] Z13.9 C-scope: 08/08/17: Next in [address] Italia sanchez Mammogram: 09/04/18: NegMammogr am 10/28/2019 : NegMammogr am: 03/03/2021 : NegMammogr am: 03/14/2022 : Neg PAP: Get this arranged, needs to see Dr Haskins, but she states that OB called and told her she did not have an apt for a year Is on premarin vaginal cream, understand s the risks DEXA: 08/29/2022 : Osteopenia , do ca and vit d UTD yearly flu shotGet TdapUTD PCV #13 06/30/2020 UTD COVID 19 vaccine RTC in 6 monthsDo labsER if worseShe did verbalize her understand ing of the above Essential hypertension 94145866 I10 On HCTZ 12.5mg dailyNot on quinapril 20mg dailyOn lisinopril 10mg dailyDoes well Hyperlipidemia 48229326 E78.5 On atorvastat in 10mg dailyDoes wellGet labs Gastroesop hageal reflux disease without esophagitis 313449629 K21.9 On famotidine Take as neededCan do TUMS Type 2 rose betes mellitus without complication 739366511 E11.9 On metformin 500mg bidGet labsDoes well Dr Benson 03/17/2021 Dr Mcconnell 12/16/2020 , was told no more apts with him Thyroid nodule 933652751 E04.1 08/20/18: Dr Gomez, [facility], is to repeat the US thyroid in one year OV 10/30/18:A s noted above OV 03/05/19:I s doing doing well at this time OV 07/02/2019 :Get US thyroid done, she states that this is already scheduled does not know the dateIs to see Dr Gomez the ENT Addendum: 09/01/2019 : 0: Dr Gomez ENT next in one year OV 10/29/2019 :F/u with ENT Ov 03/02/2020 :Keep apt with ENT OV 06/30/2020 :Needs to see Dr Gomez the ENT OV 10/27/2020 :Keep apt with Dr Gomez OV 04/27/2021 :Sees ENTGet a repeat TSH/FT4 level OV 09/19/2021 :Does wellENT Dr Gomez 08/23/2020 , next in 2 years OV 03/20/2022 :Get a referral back to ENT OV 09/11/2022 :Keep apt with ENT Environmental allergy 42 4603773 T78.49XD On flonase Increased liver function 76457982 R94.5 Normal LFTs at this time Obstructiv e sleep apnea syndrome 02607235 G47.33 Does well No more apts with pulmonary Cystocele 839477783 N81. 10 Since her insurance is changing wants another referralRe ferred to Dr Jarquin OV 09/19/2021 :Did get PAP on 07/05/2021 , neg as per her history, done at [facility], filled out NORY form to get the report OV 03/20/2022 :Keep apt with her OB, she is now seeing a urologist also in [facility] Seen by Dr Peña, now has seen urology Dr Logan Jones in [facility] on 02/26/2022 she did have PT and has another apt in 05/2022 Pain in fi nger of left hand 5891246284 20654 M79.643 There is mild redness and swelling noted in the base of the L MFRemote history of trauma as per herRefer to Dr Elif Asencio 10/25/2021 , s/p injection Urinary incontinence [address] Peña [id number] Gerardo perkins MD [facility] [address] [facility] [place] [address] 03/26/2023 09:45:36 03/26/2023 10:38:41 Screening - NAD [id number] Z13.9 C-scope: 08/08/17: Next in [address] Italia sanchez Mammogram: 09/04/18: NegMammogr am 10/28/2019 : NegMammogr am: 03/03/2021 : NegMammogr am: 03/14/2022 : Neg PAP: Get this arranged, needs to see Dr Haskins, but she states that OB called and told her she did not have an apt for a yearReferr ed 03/26/2023 Is on premarin vaginal cream, understand s the risks DEXA: 08/29/2022 : Osteopenia , do ca and vit d UTD yearly flu shotGet TdapUTD PCV #13 06/30/2020 , can do #23UTD COVID 19 vaccineGet RSV vaccine and the new COVID 19 vaccineGet Shingrix vaccine RTC in 6 monthsDo labsER if worseShe did verbalize her understand ing of the above Essential hypertension 71856143 I10 On HCTZ 12.5mg dailyNot on quinapril 20mg dailyOn lisinopril 10mg dailyDoes well Hyperlipidemia 20905348 E78.5 On atorvastat in 10mg dailyDoes wellGet labs Gastroesop hageal reflux disease without esophagitis 438807088 K21.9 On famotidine Take as neededCan do TUMS Type 2 rose betes mellitus without complication 571056389 E11.9 On metformin 500mg bidGet labsDoes well Dr Benson 03/17/2021 Dr Mcconnell 12/16/2020 , was told no more apts with him Thyroid nodule 208045992 E04.1 08/20/18: Dr Gomez, [facility], is to repeat the US thyroid in one year OV 10/30/18:A s noted above OV 03/05/19:I s doing doing well at this time OV 07/02/2019 :Get US thyroid done, she states that this is already scheduled does not know the dateIs to see Dr Gomez the ENT Addendum: 09/01/2019 : 0: Dr Gomez ENT next in one year OV 10/29/2019 :F/u with ENT Ov 03/02/2020 :Keep apt with ENT OV 06/30/2020 :Needs to see Dr Gomez the ENT OV 10/27/2020 :Keep apt with Dr Gomez OV 04/27/2021 :Sees ENTGet a repeat TSH/FT4 level OV 09/19/2021 :Does wellENT Dr Gomez 08/23/2020 , next in 2 years OV 03/20/2022 :Get a referral back to ENT OV 09/11/2022 :Keep apt with ENT OV 03/26/2023 : Keep apt with ENT Environmental allergy 42 3919445 T78.49XD On flonaseOn singulair Increased liver function 68411531 R94.5 Normal LFTs at this time Obstructiv e sleep apnea syndrome 37087227 G47.33 Does well No more apts with pulmonary Cystocele 234156139 N81. 10 Since her insurance is changing wants another referralRe ferred to Dr Jarquin OV 09/19/2021 :Did get PAP on 07/05/2021 , neg as per her history, done at [facility], filled out NORY form to get the report OV 03/20/2022 :Keep apt with her OB, she is now seeing a urologist also in [facility] Seen by Dr Peña, now has seen urology Dr Logan Jones in [facility] on 02/26/2022 she did have PT and has another apt in 05/2022 Pain in fi nger of left hand [id number] 03735 M79.645 There is mild redness and swelling noted in the base of the L MFRemote history of trauma as per herRefer to Dr Elif Asencio 10/25/2021 , s/p injection Urinary incontinence [address] 1649[address]32 [address] Peña Gynecologi c examination 72866156 Z01.419 Screening mammography 24 889461 Z12.31 [id number] Gerardo perkins MD [facility] [address] [facility] [place] [address] 10/08/2023 09:25:13 10/08/2023 10:44:12 Screening - NAD [id number] Z13.9 C-scope: 08/08/17: Next in [address] Italia sanchez Mammogram: 09/04/18: NegMammogr am 10/28/2019 : NegMammogr am: 03/03/2021 : NegMammogr am: 03/14/2022 : NegMammogr am: 04/26/2023 : Neg PAP: Get this arranged, needs to see Dr Haskins, but she states that OB called and told her she did not have an apt for a yearReferr ed 03/26/2023 Is on premarin vaginal cream, understand s the risks DEXA: 08/29/2022 : Osteopenia , do ca and vit d UTD yearly flu shotGet TdapUTD PCV #13 06/30/2020 , can do #23UTD COVID 19 vaccineGet RSV vaccine and the new COVID 19 vaccineUTD on Shingrix vaccine RTC in 4 monthsDo labsER if worseShe did verbalize her understand ing of the above Essential hypertension 05362882 I10 On HCTZ 12.5mg dailyNot on quinapril 20mg dailyOn lisinopril 10mg dailyDoes well Hyperlipidemia 93832861 E78.5 On atorvastat in 10mg dailyDoes wellGet labs Gastroesop hageal reflux disease without esophagitis 000522370 K21.9 On famotidine Take as neededCan do TUMS Type 2 rose betes mellitus without complication 919528127 E11.9 On metformin 500mg bidGet labsDoes well Dr Benson 03/17/2021 Dr Mcconnell 12/16/2020 , was told no more apts with him Thyroid nodule 858782993 E04.1 08/20/18: Dr Gomez, [facility], is to repeat the US thyroid in one year OV 10/30/18:A s noted above OV 03/05/19:I s doing doing well at this time OV 07/02/2019 :Get US thyroid done, she states that this is already scheduled does not know the dateIs to see Dr Gomez the ENT Addendum: 09/01/2019 : 0: Dr Gomez ENT next in one year OV 10/29/2019 :F/u with ENT Ov 03/02/2020 :Keep apt with ENT OV 06/30/2020 :Needs to see Dr Gomez the ENT OV 10/27/2020 :Keep apt with Dr Gomez OV 04/27/2021 :Sees ENTGet a repeat TSH/FT4 level OV 09/19/2021 :Does wellENT Dr Gomez 08/23/2020 , next in 2 years OV 03/20/2022 :Get a referral back to ENT OV 09/11/2022 :Keep apt with ENT OV 03/26/2023 : Keep apt with ENT OV 10/08/2023 : See ENT Environmental allergy 42 3663000 T78.49XD On flonaseOn singulair Increased liver function 64657600 R94.5 Normal LFTs at this time Obstructiv e sleep apnea syndrome 62379754 G47.33 Does well No more apts with pulmonary Cystocele 652301362 N81. 10 Since her insurance is changing wants another referralRe ferred to Dr Jarquin OV 09/19/2021 :Did get PAP on 07/05/2021 , neg as per her history, done at [facility], filled out NORY form to get the report OV 03/20/2022 :Keep apt with her OB, she is now seeing a urologist also in [facility] Seen by Dr Peña, now has seen urology Dr Logan Jones in [facility] on 02/26/2022 she did have PT and has another apt in 05/2022 Caren Pollock [employer] 05/06/2024 , f/u in one year, advised to f/u with her OB, is on the pessary ring Pain in fi nger of left hand [id number] 49178 M79.645 There is mild redness and swelling noted in the base of the L MFRemote history of trauma as per herRefer to Dr Elif Asencio 10/25/2021 , s/p injection Urinary incontinence [address] Peña Gynecologi c examination 51681511 Z01.419 Administra tion of pneumococcal vaccine 46265098 Z23 Adult heal th examination 016455603 Z00.00 Screening for disorder 986264802 Z13.9 [id number] Gerardo perkins MD [facility] [address] , [place] [address] 10/21/2023 13:57:51 10/21/2023 14:30:37 Pain of left knee joint [id number] 56564 M25.562 Get on meloxicam 7.5mg po bid PRN with foodNotify if not better, may need to see ortho, she is very appreciati ve of this plan [id number] Gerardo perkins MD [facility] Internal [facility] [address], [facility] [address] [place] [address] 02/18/2024 09:32:35 02/18/2024 10:13:24 Screening - NAD 083285232 Z13.9 C-scope: 08/08/17: Next in [address] Italia sanchez Mammogram: 09/04/18: NegMammogr am 10/28/2019 : NegMammogr am: 03/03/2021 : NegMammogr am: 03/14/2022 : NegMammogr am: 04/26/2023 : Neg PAP: Get this arranged, needs to see Dr Haskins, but she states that OB called and told her she did not have an apt for a yearReferr ed 03/26/2023 Is on premarin vaginal cream, understand s the risks DEXA: 08/29/2022 : Osteopenia , do ca and vit d UTD yearly flu shotGet TdapUTD PCV #13 06/30/2020 , can do #23UTD COVID 19 vaccineGet RSV vaccine and the new COVID 19 vaccineUTD on Shingrix vaccine RTC in 4 monthsDo labsER if worseShe did verbalize her understand ing of the above Essential hypertension 67387784 I10 On HCTZ 12.5mg dailyNot on quinapril 20mg dailyOn lisinopril 10mg dailyDoes well Hyperlipidemia 34275867 E78.5 On atorvastat in 10mg dailyDoes wellGet labs Gastroesop hageal reflux disease without esophagitis 057070867 K21.9 On famotidine Take as neededCan do TUMS Type 2 rose betes mellitus without complication 566391912 E11.9 On metformin 500mg bidGet labsDoes well Dr Benson 03/17/2021 Dr Mcconnell 12/16/2020 , was told no more apts with him Thyroid nodule 158285996 E04.1 08/20/18: Dr Gomez, [facility], is to repeat the US thyroid in one year 08/25/2019 : Dr Gomez ENT next in one year ENT Dr Gomez 08/23/2020 , next in 2 yearsSee ENT referred 02/18/2024 Environmental allergy 42 7781485 T78.49XD On flonaseOn singulair Increased liver function 41412312 R94.5 Normal LFTs at this time Obstructiv e sleep apnea syndrome 68852791 G47.33 Does wellNo more apts with pulmonary Cystocele 571320695 N81. 10 Since her insurance is changing wants another referralRe ferred to Dr Jarquin OV 09/19/2021 :Did get PAP on 07/05/2021 , neg as per her history, done at [facility], filled out NORY form to get the report OV 03/20/2022 :Keep apt with her OB, she is now seeing a urologist also in [facility] Seen by Dr Peña, now has seen urology Dr Logan Jones in [facility] on 02/26/2022 she did have PT and has another apt in 05/2022 Caren Pollock [employer] Urogynecol ogy Pain in fi nger of left hand [id number] 99554 M79.645 There is mild redness and swelling noted in the base of the L MFRemote history of trauma as per herRefer to Dr Elif Asencio 10/25/2021 , s/p injection Urinary incontinence 165 595395 R[address] Peña Gynecologi c examination 17065189 Z01.419 Screening mammography 24 086085 Z12.31 [id number] Gerardo perkins MD [facility] Dwayne biswas [address] [place] [address] 07/06/2024 14:17:13 07/06/2024 15:39:55 Screening - NAD 839134245 Z13.9 C-scope: 08/08/17: Next in [address] Italia sanhcez Mammogram: 09/04/18: NegMammogr am 10/28/2019 : NegMammogr am: 03/03/2021 : NegMammogr am: 03/14/2022 : NegMammogr am: 04/26/2023 : Neg PAP: Get this arranged, needs to see Dr Haskins, but she states that OB called and told her she did not have an apt for a yearReferr ed 03/26/2023 Is on premarin vaginal cream, understand s the risks DEXA: 08/29/2022 : Osteopenia , do ca and vit d UTD yearly flu shotGet TdapUTD PCV #13 06/30/2020 , can do #23UTD COVID 19 vaccineGet RSV vaccine and the new COVID 19 vaccineUTD on Shingrix vaccine RTC in 6 months as per her wishesDo labsER if worseShe did verbalize her understand ing of the above Essential hypertension 55941272 I10 On HCTZ 12.5mg dailyNot on quinapril 20mg dailyOn lisinopril 10mg dailyDoes well Hyperlipidemia 90095124 E78.5 On atorvastat in 10mg dailyDoes wellGet labs Gastroesop hageal reflux disease without esophagitis 167855203 K21.9 On famotidine Take as neededCan do TUMS Type 2 rose betes mellitus without complication 802104553 E11.9 On metformin 500mg bidGet labsDoes well Dr Benson 03/17/2021 Dr Mcconnell 12/16/2020 , was told no more apts with him Thyroid nodule 440479617 E04.1 08/20/18: Dr Gomez, [facility], is to repeat the US thyroid in one year 08/25/2019 : Dr Gomez ENT next in one year ENT Dr Gomez 08/23/2020 , next in 2 yearsSee ENT referred 02/18/2024 Environmental allergy 42 0086021 T78.49XD On flonaseOn singulair Increased liver function 34009493 R94.5 Normal LFTs at this time Obstructiv e sleep apnea syndrome 23834043 G47.33 Does wellNo more apts with pulmonary Cystocele 940910169 N81. 10 Since her insurance is changing wants another referralRe ferred to Dr Jarquin OV 09/19/2021 :Did get PAP on 07/05/2021 , neg as per her history, done at [facility], filled out NORY form to get the report OV 03/20/2022 :Keep apt with her OB, she is now seeing a urologist also in [facility] Seen by Dr Peña, now has seen urology Dr Logan Jones in [facility] on 02/26/2022 she did have PT and has another apt in 05/2022 Caren Pollock [employer] Urogynecol ogy Pain in fi nger of left hand [id number] 48694 M79.645 There is mild redness and swelling noted in the base of the L MFRemote history of trauma as per herRefer to Dr Elif Asencio 10/25/2021 , s/p injection Urinary incontinence [address] Peña Gynecologi c examination 13771080 Z01.419 Screening mammography 24 008716 Z12.31 Health Concerns Section Related Observation LastModified by Organization Detai ls LastModified Time None Recorded Concern Status LastModified by Organization Details LastModified Time None Recorded Advance Directives Directive N: information given today Payers Encounter Date Sequence Insurance Name Policy Number Policy Cornell Covered Member ID Cornell Member ID Guarantor Name 03/26/2023 1 [employer] (MEDICARE REPLACEMENT/ ADVANTAGE - HMO) [id number] Pinky Richmond [id number] Pinky Richmond 10/08/2023 1 [employer] (MEDICARE REPLACEMENT/ ADVANTAGE - HMO) [id number] Pinky Richmond [id number] Pinkymoise Richmond 10/21/2023 1 [employer] (MEDICARE REPLACEMENT/ ADVANTAGE - HMO) [id number] Pinky Richmond [id number] Pinkymoise Richmond 02/18/2024 1 [facility] (MEDICARE REPLACEMENT/ ADVANTAGE - HMO) [id number] Pinky Perkins Basilio [id number] Pinky Perkins Basilio 07/06/2024 1 [facility] (MEDICARE REPLACEMENT/ ADVANTAGE - HMO) [id number] Pinky Perkins Basilio [id number] Pinky Contrerasberger Notes Date Note Type Note Provider Name and Address Organization Details Recorded Time 03/26/2023 text/html OV 06/30/18:Here to establish carePast Hx:HTN,HLDLow vit DReviewed social family and surgical historyFeels that she is doing wellShe does require labsShe does also need to do a mammogram OV 10/30/18:Here for her routine aptShe did do the labsShe feels well OV 03/05/19:Here for her routine aptShe is dong wellNo new labs OV 07/02/2019:Here for her routine aptShe feels wellShe did do the labs OV 10/29/2019:Here for her routine aptShe feels 'great', works out in the yard a lot and also runs on treadmill for 40min a dayShe has recently been furloughed from her job in [facility]he did do the labs and has done her mammogram OV 03/02/2020:Here for her routine aptShe feels Jesushe did do the labs OV 06/30/2020:Here for her routine aptShe is doing wellShe did see Dr Nerihe has also done her labsOV 10/27/2020:Here for her routine aptShe did do the labsFeels well OV 04/27/2021:Here for her routine aptShe is doing wellShe did do the labs on 04/15/2021he states that she has lost weight as she is watching her dietOV 09/19/2021:Here for her routine aptShe is doing wellC/o L MF painShe is also to see Dr Peña for bladder prolapseShe did do the labs on 2OV 03/20/2022:Here for her f/u apt, she is doing very well, very happy now that her mother is living with herShe did do the labs, she has also seen a [facility]rologist [facility] Asencio 10/25/2021 OV 09/11/2022:Here for her f/u apt, she is doing well, she did do the labs OV 03/26/2023: Here for her f/u apt, she is doing well today, she did do the labs on 03/13/2023 Gerardo Cameron MD [address], [address], [place], [address], [place] [facility] [employer] [facility] 03/26/2023 11:04:41 10/08/2023 text/html OV 06/30/18:Here to establish carePast Hx:HTN,HLDLow vit DReviewed social family and surgical historyFeels that she is doing wellShe does require labsShe does also need to do a mammogram OV 10/30/18:Here for her routine aptShe did do the labsShe feels well OV 03/05/19:Here for her routine aptShe is dong wellNo new labs OV 07/02/2019:Here for her routine aptShe feels Alex did do the labs OV 10/29/2019:Here for her routine aptShe feels 'great', works out in the yard a lot and also runs on treadmill for 40min a dayShe has recently been furloughed from her job in [facility] UShe did do the labs and has done her mammogram OV 03/02/2020:Here for her routine aptShe feels Alex did do the labs OV 06/30/2020:Here for her routine aptShe is doing wellShe did see Dr Nerihe has also done her labsOV 10/27/2020:Here for her routine aptShe did do the labsFeels well OV 04/27/2021:Here for her routine aptShe is doing wellShe did do the labs on 04/15/2021he states that she has lost weight as she is watching her dietOV 09/19/2021:Here for her routine aptShe is doing wellC/o L MF painShe is also to see Dr Peña for bladder prolapseShe did do the labs on 2OV 03/20/2022:Here for her f/u apt, she is doing very well, very happy now that her mother is living with herShe did do the labs, she has also seen a [facility]rologist [facility] Asencio 10/25/2021 OV 09/11/2022:Here for her f/u apt, she is doing well, she did do the labs OV 03/26/2023: Here for her f/u apt, she is doing well today, she did do the labs on 03/13/2023 OV 10/08/2023: Here for her f/u apt, she is doing well today Gerardo Cameron MD [address], [place], [address], [place] [facility] 10/08/2023 18:29:35 10/21/2023 text/html OV 06/30/18:Here to establish carePast Hx:HTN,HLDLow vit DReviewed social family and surgical historyFeels that she is doing wellShe does require labsShe does also need to do a mammogram OV 10/30/18:Here for her routine aptShe did do the labsShe feels well OV 03/05/19:Here for her routine aptShe is dong wellNo new labs OV 07/02/2019:Here for her routine aptShe feels Alex did do the labs OV 10/29/2019:Here for her routine aptShe feels 'great', works out in the yard a lot and also runs on treadmill for 40min a dayShe has recently been furloughed from her job in [facility] UShe did do the labs and has done her mammogram OV 03/02/2020:Here for her routine aptShe feels Alex did do the labs OV 06/30/2020:Here for her routine aptShe is doing wellShe did see Dr Nerihe has also done her labsOV 10/27/2020:Here for her routine aptShe did do the labsFeels well OV 04/27/2021:Here for her routine aptShe is doing wellShe did do the labs on 04/15/2021he states that she has lost weight as she is watching her dietOV 09/19/2021:Here for her routine aptShe is doing wellC/o L MF painShe is also to see Dr Peña for bladder prolapseShe did do the labs on 09/13/2021V 03/20/2022:Here for her f/u apt, she is doing very well, very happy now that her mother is living with herShe did do the labs, she has also seen a [facility]rologist [facility] Asencio 10/25/2021 OV 09/11/2022:Here for her f/u apt, she is doing well, she did do the labs OV 03/26/2023: Here for her f/u apt, she is doing well today, she did do the labs on 03/13/2023 OV 10/08/2023: Here for her f/u apt, she is doing well today OV 10/21/2023: Here for ACV:S/p trip and fall over her dog, went to the and s/p xray on 10/17/2023, getting better since then, still hurts to put full weight on the knee, no N/T or weakness, states that she is able to ambulate very well now Gerardo Cameron MD [address] [place] [address], [address], [place], [address], [place] [facility] [employer] [facility] 10/21/2023 14:41:12 02/18/2024 text/html OV 06/30/18:Here to establish carePast Hx:HTN,HLDLow vit DReviewed social family and surgical historyFeels that she is doing wellShe does require labsShe does also need to do a mammogram OV 10/30/18:Here for her routine aptShe did do the labsShe feels well OV 03/05/19:Here for her routine aptShe is dhara Morris new labs OV 07/02/2019:Here for her routine aptShe feels Alex did do the labs OV 10/29/2019:Here for her routine aptShe feels 'great', works out in the yard a lot and also runs on treadmill for 40min a dayShe has recently been furloughed from her job in [facility] UShe did do the labs and has done her mammogram OV 03/02/2020:Here for her routine aptShe feelsegun Johnson did do the labs OV 06/30/2020:Here for her routine aptShe is doing wellShe did see Dr Saleh has also done her labsOV 10/27/2020:Here for her routine aptShe did do the labsFeels well OV 04/27/2021:Here for her routine aptShe is doing wellShe did do the labs on 04/15/2021he states that she has lost weight as she is watching her dietOV 09/19/2021:Here for her routine aptShe is doing wellC/o L MF painShe is also to see Dr Peña for bladder prolapseShe did do the labs on 2OV 03/20/2022:Here for her f/u apt, she is doing very well, very happy now that her mother is living with herShe did do the labs, she has also seen a urologist in [facility] see Dr Asencio 10/25/2021 OV 09/11/2022:Here for her f/u apt, she is doing well, she did do the labs OV 03/26/2023: Here for her f/u apt, she is doing well today, she did do the labs on 03/13/2023 OV 10/08/2023: Here for her f/u apt, she is doing well today OV 10/21/2023: Here for ACV:S/p trip and fall over her dog, went to the and s/p xray on 10/17/2023, getting better since then, still hurts to put full weight on the knee, no N/T or weakness, states that she is able to ambulate very well now OV 02/18/2024: Here for her f/u apt, she feels well today Gerardo Cameron MD [address] [facility] [address], [place], [address], [place] [facility] [employer] [facility] 02/18/2024 17:36:36 07/06/2024 text/html OV 06/30/18:Here to establish carePast Hx:HTN,HLDLow vit DReviewed social family and surgical historyFeels that she is doing wellShe does require labsShe does also need to do a mammogram OV 10/30/18:Here for her routine aptShe did do the labsShe feels well OV 03/05/19:Here for her routine aptShe is dhara Alexandra new labs OV 07/02/2019:Here for her routine aptShe feels Alex did do the labs OV 10/29/2019:Here for her routine aptShe feels 'great', works out in the yard a lot and also runs on treadmill for 40min a dayShe has recently been furloughed from her job in [facility]he did do the labs and has done her mammogram OV 03/02/2020:Here for her routine aptShe feels Alex did do the labs OV 06/30/2020:Here for her routine aptShe is doing wellShe did see Dr Nerihe has also done her labsOV 10/27/2020:Here for her routine aptShe did do the labsFeels well OV 04/27/2021:Here for her routine aptShe is doing wellShe did do the labs on 04/15/2021he states that she has lost weight as she is watching her dietOV 09/19/2021:Here for her routine aptShe is doing wellC/o L MF painShe is also to see Dr Peña for bladder prolapseShe did do the labs on 2OV 03/20/2022:Here for her f/u apt, she is doing very well, very happy now that her mother is living with herShe did do the labs, she has also seen a urologist in [facility]Did see Dr Asencio 10/25/2021 OV 09/11/2022:Here for her f/u apt, she is doing well, she did do the labs OV 03/26/2023: Here for her f/u apt, she is doing well today, she did do the labs on 03/13/2023 OV 10/08/2023: Here for her f/u apt, she is doing well today OV 10/21/2023: Here for ACV:S/p trip and fall over her dog, went to the and s/p xray on 10/17/2023, getting better since then, still hurts to put full weight on the knee, no N/T or weakness, states that she is able to ambulate very well now OV 02/18/2024: Here for her f/u apt, she feels well today OV 07/06/2024: Here for her f/u apt, she is doing well today, she did do the labs Gerardo Cameron MD [address] [facility] [facility] [address], [place], [address], [facility] 07/06/2024 15:40:37 OBGyn Episode No OBEpisode recorded.
--- OUTSIDE RECORDS SUMMARY | 2024-11-11 14:41 | XMS_ITS | CONTINUITY OF CARE DOCUMENT ---
Author Name beronicanorakarol Address Unknown Organization [facility] Address [address] [place] [address] Phone [phone] Care Team Providers Care Relay Adjuster Name Role Phone Rogelio Clinton MD Unavailable ANTONIO SCHERER MD Unavailable ANTONIO SCHERER MD Unavailable PROBLEMS Condition Status Date Provider Notes Syncope active Rogelio Clinton MD INSURANCE PROVIDERS Payer name Policy type / Coverage type [place] [employer] insurance company [id number] HISTORY OF PROCEDURES Procedure Date Procedure Name Provider Procedure Notes S tatus SANJUANA Clinton MD c ompleted
== END 2024-11-11 14:28 | disposition home or self-care (01) ==
LOC: ANHIMG 14:29
PROVIDERS: PCP Internal Medicine; Visit Provider Internal Medicine
DX: Z12.31 Encounter for screening mammogram for malignant neoplasm of breast (principal)
CPT/HCPCS: 77063; 77067

== ENCOUNTER 2025-03-17 10:52 | Outpatient (CLI) | payer MEDICARE, SELFPAY ==
--- NOTE | ~2025-03-17 | DEXA_ITS ---
Bone Density Report Name: PAVAN LEVY Age: 69 Sex: Female Ethnicity: White Date of : 1955 Indication: postmenopausal; screening for osteoporosis; parental hip fracture; height loss; Referring Provider: NIESHA, ANTONIO Study: Bone densitometry was performed. Exam Date: March 17, 2025 Accession number: [id number] Bone Density: Region BMD T-score Z-score Classification AP Spine(L1-L4) 0.846 -1.8 0.3 Osteopenia Femoral Neck (Left) 0.733 -1.0 0.7 Normal Total Hip (Left) 0.805 -1.1 0.4 Osteopenia Femoral Neck (Right) 0.763 -0.8 1.0 Normal Total Hip (Right) 0.748 -1.6 -0.1 Osteopenia Total Hip Mean 0.776 -1.4 0.2 Osteopenia World Health Organization criteria for BMD impression classify patients as: Normal (T-score at or above -1.0), Osteopenia (T-score between -1.0 and -2.5), or Osteoporosis (T-score at or below -2.5). 10-year Fracture Risk(1): Major Osteoporotic Fracture 14% Hip Fracture 1.9% Reported Risk Factors: [place] (), Neck BMD=0.733, BMI=25.9, parental fracture (1) FRAX(R) Version 3.08. Fracture probability calculated for an untreated patient. Fracture probability may be lower if the patient has received treatment. Clinical Information Provided by Patient: Parent has had a hip fracture Has used the following medications: HRT (i.e. estrogen/hormone therapy), Vitamin D, Calcium Patient maximum height was 61.0 Menopause Age: 52 No regular weight bearing exercise Drinks caffeinated beverages Onset of menses at age 11 Number of children 2 Impression: The patient has low bone mass, based on the Total Spine T-score. The patient has an estimated ten-year risk of hip fracture of 1.9% and an estimated ten-year risk of major fracture of 14%, based on the WHO FRAX algorithm. The patient has risk factors, including: parental hip fracture. Discussion: BONE DENSITY IS LOW AT ONE OR MORE SKELETAL SITES. This patient's lowest T-score is low at one or more skeletal sites. It meets the World Health Organization's (WHO) criteria for ?low bone mass? (T-score between -1.0 and -2.5). The patient's 10-year risk of fracture as calculated by FRAX is less than the threshold where pharmacological therapy is recommended by the National Osteoporosis Foundation (NOF). However, all treatment decisions require clinical judgment and consideration of individual patient factors, including patient preferences, comorbidities, previous drug use, risk factors not captured in the FRAX model (e.g., frailty, falls, vitamin D deficiency, increased bone turnover, interval significant decline in bone density) and possible under or overestimation of fracture risk by FRAX. The patient should follow a healthful lifestyle (good nutrition with adequate calcium and vitamin D, and appropriate weight-bearing exercise). Follow-Up: Consider repeating this study in 2 to 3 years to reassess this patient's status, or sooner if there is some new clinical indication. Reported by: TORRI on 03/17/2025 11:30:00 AM. Reviewed, dictated and finalized at location A.
== END 2025-03-17 10:53 | disposition home or self-care (01) ==
LOC: ANHFOHIMG 10:55
PROVIDERS: PCP Internal Medicine; Visit Provider Internal Medicine
DX: M85.89 Other specified disorders of bone density and structure, multiple sites (principal); Z78.0 Asymptomatic menopausal state
CPT/HCPCS: 77080